=== PATIENT | female | born 1970 | race Caucasian/White ===

== ENCOUNTER → 2016-11-20 | Outpatient (CLI) | payer OTHER ==
--- NOTE | ~2016-11-20 | CR181 ---
[facility]. [facility] A Service of [facility] / [facility] RADIOLOGY TEXT RESULTS PATIENT: EDUARDO VALENTINO LOCATION: [facility] : 66 UNIT #: [id number] AGE: [address]: ELISABETH MACHUCA APRN SEX: F ORDER DR: [id number] [address] [address] [id number] O MR#: [id number] Acc #: [id number] NAME: EDUARDO VALENTINO : 1970 SEX: F STUDY DATE/TIME: 11/20/2016 15:02 UNIT: SRAD ROOM: STUDY DESCRIPTION: CR Lumbar Spine 2 or 3 Views Attending Physician: Elisabeth Machuca Aprn Referring Physician: Elisabeth Machuca Aprn Ordering Physician: Elisabeth Machuca Aprn Primary Care Physician: Elisabeth Machuca Aprn MEDICAL IMAGING REPORT This report is preliminary unless electronic signature is present. EXAM Lumbar spine, 11/20/2016. HISTORY 46-year-old female with low back pain for 1 year. No specific injury. COMPARISON None. FINDINGS Three views of the lumbar spine demonstrate no acute fracture or subluxation. Vertebral body heights and alignment are normally maintained. Disc spaces and facets are within normal limits. Sacrum and SI joints are intact. IMPRESSION Unremarkable lumbar spine. Dictated by... Bridger Luo M.D. THIS IS AN ELECTRONICALLY VERIFIED REPORT Bridger Luo M.D. at 11/25/2016 10:26 AM TUNG/fernando TD: 11/21/2016 01:09 JOB #: [id number] MEDICAL IMAGING REPORT Page 1 of 1
--- NOTE | ~2016-11-20 | CR219 ---
[facility]. [facility] A Service of [facility] & [facility] RADIOLOGY TEXT RESULTS PATIENT: EDUARDO VALENTINO LOCATION: [facility] : 66 UNIT #: [id number] AGE: [address]: ELISABETH MACHUCA APRN SEX: F ORDER DR: [id number] [address] [address] [id number] O MR#: [id number] Acc #: [id number] NAME: EDUARDO VALENTINO : 1970 SEX: F STUDY DATE/TIME: 11/20/2016 15:02 UNIT: SRAD ROOM: STUDY DESCRIPTION: CR Sacrum and Coccyx Min 2 Vie Attending Physician: Elisabeth Machuca Aprn Referring Physician: Elisabeth Machuca Aprn Ordering Physician: Elisabeth Machuca Aprn Primary Care Physician: Elisabeth Machuca Aprn MEDICAL IMAGING REPORT This report is preliminary unless electronic signature is present. EXAM Sacrum/coccyx, 11/20/2016. HISTORY 46-year-old female with sacral pain for 1 year. No specific injury. COMPARISON None. FINDINGS Three views of the sacrum and coccyx demonstrate no acute fracture. SI joints intact. Visualized bony pelvis is intact. IMPRESSION Unremarkable sacrum/coccyx. Dictated by... Bridger Luo M.D. THIS IS AN ELECTRONICALLY VERIFIED REPORT Bridger Luo M.D. at 11/25/2016 10:26 AM TUNG/fernando TD: 11/21/2016 01:12 JOB #: [id number] MEDICAL IMAGING REPORT Page 1 of 1
== END | disposition home or self-care (01) ==
LOC: SRAD 14:53
DX: M54.9 Dorsalgia, unspecified (principal)
CPT/HCPCS: 72100; 72220